=== PATIENT | female | born 1935 | race Hispanic/Latino ===

== ENCOUNTER → 2019-08-22 | Outpatient (CLI) | payer MEDICARE, OTHER ==
--- NOTE | 2019-08-22 11:17 | Diagnostic Imaging Report ---
EXAMINATION: Head CT HISTORY: Headache, dizziness for the last 1 1/2 years COMPARISON: None available TECHNIQUE: Multidetector axial images were obtained without contrast from the foramen magnum to the vertex . The images were reconstructed using brain and bone algorithms. Thin section brain images were reformatted into coronal and sagittal planes. Image quality: Motion/streaking artifact limits the evaluation of the skull base and posterior cranial fossa. Dose modulation, iterative reconstruction, and/or weight based adjustment of the mA/kV was utilized to reduce the radiation dose to as low as reasonably achievable. FINDINGS: Parenchyma: 1. Few scattered air and mildly confluent periventricular white matter hypodensities, most likely nonspecific chronic microvascular ischemic changes. 2. Physiologic calcification of the globi pallidi. 3. No mass or hemorrhage. No CT evidence of acute territorial vascular insult. Extra-axial spaces:No abnormal density. No extra-axial fluid collections Brain volume: Normal for age. Ventricles: No hydrocephalus or displacement. Arteries: No density suggestive of thrombus. Dural sinuses: No abnormal density. Extra-axial spaces: No abnormal density. Foramen magnum: No mass, Chiari malformation, or basilar invagination. Sella: No obvious mass. Paranasal/mastoid sinuses: Imaged portions unremarkable. Skull/Scalp: No lytic or blastic lesions. No fractures. IMPRESSION: 1. No intracranial mass, hemorrhage, acute or chronic infarcts. 2. Mild white matter chronic microvascular ischemic changes. Signed by: Dr. Patricia Hubbard M.D. on 08/22/2019 11:13 AM
== END ==
LOC: CT 10:10
PROVIDERS: ATTEND Family Medicine
DX: R51 Headache (principal)
CPT/HCPCS: 70450

== ENCOUNTER → 2020-03-02 | Outpatient (CLI) | payer MEDICARE, OTHER ==
--- NOTE | 2020-03-02 14:22 | Diagnostic Imaging Report ---
EXAMINATION: SP LUMBAR, COMPLETE MIN 4VW INDICATION: Back pain COMPARISON: None FINDINGS: AP, lateral and oblique images of the lumbar spine were obtained. There are 6 nonrib-bearing vertebral bodies. For the purposes of nomenclature, the first nonrib-bearing vertebral body will be designated L1. No acute fracture or dislocation. Vertebral body heights are maintained. Grade 1 anterolisthesis at L5-S1. Diffuse osteopenia and moderate multifocal degenerative changes with disc space narrowing, osteophyte formation and facet arthropathy. Diffuse athetotic arterial calcifications. Status post cholecystectomy. IMPRESSION: No acute osseous injury. Diffuse osteopenia and multifocal degenerative changes as above. Signed by: Dinora Ardon MD on 03/02/2020 2:19 PM
== END ==
LOC: RAD 11:29
PROVIDERS: ATTEND Family Medicine
DX: M54.5 Low back pain (principal)
CPT/HCPCS: 72110

== ENCOUNTER → 2020-09-30 | Outpatient (CLI) | payer MEDICARE, OTHER | LOC: CT 08:17 | PROVIDERS: ATTEND Family Medicine | DX: S00.83XA Contusion of other part of head, initial encounter (principal); S00.33XA Contusion of nose, initial encounter; W19.XXXA Unspecified fall, initial encounter | CPT/HCPCS: 70450; 70486 ==